=== PATIENT | female | born 1995 | race African-American/Black ===

== ENCOUNTER 2017-10-16 00:28 | Emergency (ER) | payer SELFPAY ==
[~2017-10-16] VITALS: Ht 170.2 cm; Wt 61.2 kg
[2017-10-16] MEDS ORDERED: NKM (00:46)
[2017-10-16] MEDS ORDERED: ACYCLOVIR400 MG ORAL (01:18)
[2017-10-16] MEDS ORDERED: VALTREX1000 MG PO (01:18)
--- NOTE | 2017-10-16 01:19 | Emergency Room Report ---
History of Present Illness General Chief Complaint: Female Urogenital Problems Source: Patient Present Illness HPI Is a 22-year-old female with no past medical history. She is sexually active with her boyfriend. She presents with chief complaint of vaginal itching and pain. Also with a rash on it. His breaking to the point of bleeding. Worse with urination. No fever chills but no nausea no vomiting. No other discharge. Allergies: Coded Allergies: No Known Allergies (Unverified , 10/16/17) Patient History Past Medical History: see triage record, old chart reviewed Past Surgical History: none Pertinent Family History: none Social History: Denies: smoking Last Menstrual Period: last month Now: No Immunizations: other Reviewed Nursing Documentation: PMH: Agreed; PSxH: Agreed Nursing Documentation-PMH Past Medical History: No Stated History Review of Systems Eye: Denies: eye pain, blurred vision ENT: Denies: ear pain, nose congestion, throat swelling Respiratory: Denies: cough, shortness of breath Cardiovascular: Denies: chest pain, palpitations Gastrointestinal: Denies: abdominal pain, diarrhea, nausea, vomiting Genitourinary: Reports: discharge Musculoskeletal: Denies: back pain, joint pain Skin: Denies: rash Neurological: Denies: headache, numbness Endocrine: Denies: increased thirst, increased urine Hematologic/Lymphatic: Denies: easy bruising All Other Systems: negative except mentioned in HPI Physical Exam Vital Signs Date Time Temp Pulse Resp B/P (MAP) Pulse Ox O2 Delivery O2 Flow Rate FiO2 10/16/17 00:41 98.6 81 18 108/71 97 Room Air 98.6 vitals normal Sp02 EP Interpretation: reviewed, normal General Appearance: well appearing, no apparent distress, alert Head: normocephalic, atraumatic Eyes: bilateral eye PERRL, bilateral eye EOMI ENT: hearing grossly normal, normal pharynx Neck: full range of motion, supple, no meningismus Respiratory: chest non-tender, lungs clear, normal breath sounds Cardiovascular #1: regular rate, rhythm, no murmur Gastrointestinal: normal bowel sounds, non tender, no mass, no organomegaly, no bruit, non-distended Genitourinary: other - Pelvic exam done with REGINALDO Barker, as historian research assistant. External exam showed this occur lesion on the inferior aspect of the vaginal area externally. Musculoskeletal: back normal, gait/station normal, normal range of motion Neurologic: alert, oriented x3 Psychiatric: mood/affect normal Skin: warm/dry Medical Decision Making Diagnostic Impression: Primary Impression: Herpes simplex virus (HSV) infection of vagina ER Course Patient with rash consistent with herpes. She said that her boyfriend has 3 bumps on his penis with had sex last week. No evidence of abscess or cellulitis. We'll treat symptomatically. I held off on any internal pelvic exam because of the rash. Last Vital Signs Date Time Temp Pulse Resp B/P (MAP) Pulse Ox O2 Delivery O2 Flow Rate FiO2 10/16/17 00:41 98.6 81 18 108/71 97 Room Air 98.6 Status: improved Disposition: HOME, SELF-CARE Condition: Stable Scripts Valacyclovir Hcl (VALTREX) 1,000 Mg Tablet 1000 MG PO BID, #14 TAB Prov: ALIYA MCCARTY M.D. 10/16/17 Acyclovir* (ACYCLOVIR*) 400 Mg Tablet 400 MG ORAL TID for 7 Days, TAB Prov: ALIYA MCCARTY M.D. 10/16/17 Additional Instructions: Fill either the Valtrex or acyclovir prescription. You can check [employer] to see which pharmacies cheaper. Follow-up your doctor in 7 days. Recommend outpatient testing for HIV, hepatitis, syphilis and other STDs. This can be done anonymously. Return if worse. ALIYA MCCARTY M.D. October 16, 2017 01:19
[2017-10-16 01:26] VITALS: BP 108/71
[2017-10-16 01:28] VITALS: BP 108/71
== END 2017-10-16 01:38 | disposition home or self-care (01) ==
LOC: EMR 00:53
DX: A60.04 Herpesviral vulvovaginitis (principal)
CPT/HCPCS: 87070; 87181; 87205; 99284